=== PATIENT | female | born 1995 | race Hispanic/Latino ===

== ENCOUNTER 2023-08-24 00:25 | Emergency (ER) | payer OTHER, SELFPAY ==
[2023-08-24 00:28] VITALS: BP 145/95; BMI 28.4
[2023-08-24 01:05] LABS: COVID-19 Antigen Positive (Negative)
[2023-08-24 01:09] LABS: HCG, Serum Qualitative Screen Negative
[2023-08-24 01:12] LABS: Blood Urea Nitrogen 12 mg/dl (7-17); Calcium 9.3 mg/dl (8.4-10.2); Carbon Dioxide 26 mmol/L (22-30); Chloride 105 mmol/L (98-107); Estimated Creatinine Clearance > 125 ml/min; Glucose 103 mg/dl (70-99); Potassium 4.1 mmol/L (3.5-5.1); Sodium 136 mmol/L (135-145); eGFR > 60.00
[2023-08-24 01:13] LABS: % Basophils 0.5 % (0-2); % Eosinophils 0.7 % (0-6); % Immature Granulocytes 0.8 % (0-0.5); % Lymphocytes 20.4 % (20.5-51.1); % Monocytes 11.5 % (1.7-9.3); % Neutrophils 66.1 % (42.2-75.2); Absolute Eosinophils 0.1 10^3/uL (0-0.7); Absolute Immature Granulocytes 0.1 10^3/uL (0-0.05); Absolute Lymphocytes 1.7 10^3/uL (1.2-3.4); Absolute Neutrophils 5.6 10^3/uL (1.4-6.5); Hematocrit 38.2 % (37.0-47.0); Hemoglobin 12.8 g/dL (12.0-16.0); Mean Corp Hgb Conc. 33.5 g/dL (33.0-37.0); Mean Corpuscular Hgb 28.1 pg (27.0-31.0); Mean Corpuscular Volume 83.8 fL (81.0-99.0); Mean Platelet Volume 11.3 fL (7.4-10.4); Nucleated Red Blood Cells % 0 %; Platelet Count 306 10^3/uL (130-400); Red Blood Cell Count 4.56 10^6/uL (4.20-5.40); White Blood Cell Count 8.5 10^3/uL (4.8-10.8)
[2023-08-24 01:17] LABS: Alcohol None Detected
[2023-08-24 01:28] LABS: Amphetamines Negative (Negative); Barbiturates Negative (Negative); Benzodiazepines Negative (Negative); Buprenorphine Negative (Negative); Cocaine Negative (Negative); Marijuana Positive (Negative); Methadone Negative (Negative); Methamphetamines Negative (Negative); Opiates Negative (Negative); Phencyclidine Negative (Negative); Tricyclic Antidepressants Negative (Negative)
--- NOTE | 2023-08-24 02:24 | ED.GENMED ---
History of Present Illness
<JOELLE Che - Last Filed: 08/24/23 07:21>
General
Chief Complaint: Crisis Evaluation
Source: patient and records
Exam Limitations: clinical condition
Time Seen by Provider: 08/24/23 00:54
Nursing documentation reviewed up to this point in time: agreed with
Travel History
Have you had any contact with someone who has COVID-19?: No
Do you have any symptoms of coronavirus? Fever > 100 degrees, chills, cough, shortness of breath, sore throat, loss of taste or smell, muscle aches, or headache?: No
History of Present Illness
History of Present Illness:
This is a 28 year old female, with a PMH of bipolar and substance abuse, who presents to the ED for a crisis evaluation and 302. Pt's mother called the police on patient because she was allegedly 'locking her out of the house and being aggressive.'
Pt does not wish to comment on the situation. She states she has not used fentanyl in over a year and last used marijuana 6 days ago. She is currently going through recovery she states.
Past History
<JOELLE Che - Last Filed: 08/24/23 07:21>
Past History
ED Past Medical History: Psychiatric (PTSD, Bipolar, anxiety, substance abuse)
ED Past Surgical History: None
Social History
Tobacco: Non-smoker
Alcohol: None
Drug: Former user, Marijuana and Other (fentanyl)
Personal: Single
Living: with family
Employment: Not employed
Family History
Family History: Other (Noncontributory)
Review of Systems
<JOELLE Che - Last Filed: 08/24/23 07:21>
Review of Systems
Allergies reviewed?: Yes
Unable to obtain full review of systems at this time due to: other (psychiatric condition)
Phy Exam
<Margarita Medellin [facility] - Last Filed: 08/24/23 07:21>
General Physical Exam
General Presentation: no apparent distress
General age: appears stated age
General Skin: warm and dry
General Habitus: normal
General Mental: alert
General Hydration: appears well hydrated
ENT Exam
ENT Exam: neck supple, normocephalic, swallowing well and other (voice appears hoarse)
Cardiovascular Exam
Cardiovascular Exam: regular rate/rhythm, no edema, no murmur and normal peripheral pulses
Pulmonary Exam
Pulmonary Exam: lungs clear, no respiratory distress, no crackles, no wheezing and no cough
Gastrointestinal Exam
Gastrointestinal Exam: normal bowel sounds, non tender, soft and non distended
Neurological Exam
Neurological Exam: alert and oriented x3
Musculoskeletal Exam
Musculoskeletal Exam: full ROM and no edema
Skin Exam
Skin Exam: normal color and warm/dry
Course
<Margarita Medellin [facility] - Last Filed: 08/24/23 07:21>
Orders/Labs/Results
Orders:
Orders
08/24/23 00:39
Test Result ONCE
08/24/23 00:44
Alcohol Urgent
Basic Metabolic Panel Urgent
COVID-19 Antigen Urgent
Source: Nasal Swab
Complete Blood Count/With Diff Urgent
HCG, Serum Qualitative Screen Urgent
08/24/23 00:47
Urine Drug Abuse Screen Urgent
Date Specimen was Collected: 08/24/23
Time Specimen was Collected: 00:46
Abnormal Lab Results
08/24/23 08/24/23
00:44 00:47
RDW 15.0 H %
(11.5-14.5)
MPV 11.3 H fL
(7.4-10.4)
Abs Immat Gran (auto) 0.1 H 10^3/uL
(0-0.05)
Absolute Monos (auto) 1.0 H 10^3/uL
(0.1-0.6)
Immature Gran % 0.8 H %
(0-0.5)
Lymphocytes % 20.4 L %
(20.5-51.1)
Monocytes % 11.5 H %
(1.7-9.3)
Glucose 103 H mg/dl
(70-99)
U Marijuana (THC) Screen Positive H
(Negative)
SARS-CoV-2 Antigen Positive A
(Negative)
08/24/23 00:44
08/24/23 00:44
Vital Signs
Initial and Last Documented VS:
Initial Vital Signs
Temp Pulse Resp BP Pulse Ox
98.5 F 94 20 145/95 98
08/24/23 00:28 08/24/23 00:28 08/24/23 00:28 08/24/23 00:28 08/24/23 00:28
Last Documented Vital Signs
Temp Pulse Resp BP Pulse Ox
98.5 F 94 20 145/95 98
08/24/23 00:28 08/24/23 00:28 08/24/23 00:28 08/24/23 00:28 08/24/23 00:53
<Deidra Holbrook, DO - Last Filed: 08/24/23 07:23>
Orders/Labs/Results
Orders:
Orders
08/24/23 00:39
Test Result ONCE
08/24/23 00:44
Alcohol Urgent
Basic Metabolic Panel Urgent
COVID-19 Antigen Urgent
Source: Nasal Swab
Complete Blood Count/With Diff Urgent
HCG, Serum Qualitative Screen Urgent
08/24/23 00:47
Urine Drug Abuse Screen Urgent
Date Specimen was Collected: 08/24/23
Time Specimen was Collected: 00:46
Abnormal Lab Results
08/24/23 08/24/23
00:44 00:47
RDW 15.0 H %
(11.5-14.5)
MPV 11.3 H fL
(7.4-10.4)
Abs Immat Gran (auto) 0.1 H 10^3/uL
(0-0.05)
Absolute Monos (auto) 1.0 H 10^3/uL
(0.1-0.6)
Immature Gran % 0.8 H %
(0-0.5)
Lymphocytes % 20.4 L %
(20.5-51.1)
Monocytes % 11.5 H %
(1.7-9.3)
Glucose 103 H mg/dl
(70-99)
U Marijuana (THC) Screen Positive H
(Negative)
SARS-CoV-2 Antigen Positive A
(Negative)
08/24/23 00:44
08/24/23 00:44
Vital Signs
Initial and Last Documented VS:
Initial Vital Signs
Temp Pulse Resp BP Pulse Ox
98.5 F 94 20 145/95 98
08/24/23 00:28 08/24/23 00:28 08/24/23 00:28 08/24/23 00:28 08/24/23 00:28
Last Documented Vital Signs
Temp Pulse Resp BP Pulse Ox
98.5 F 94 20 145/95 98
08/24/23 00:28 08/24/23 00:28 08/24/23 00:28 08/24/23 00:28 08/24/23 00:53
<JOELLE Che - Last Filed: 08/24/23 07:21>
*Critical Care Note
Total Time (30-74mins, 75-104mins- exclusive of procedures): Not Applicable
<Deidra Holbrook DO - Last Filed: 08/24/23 07:23>
*Pulse Oximetry
Patient hypoxic: no
*Critical Care Note
Total Time (30-74mins, 75-104mins- exclusive of procedures): Not Applicable
ED Attending Note
<JOELLE Che - Last Filed: 08/24/23 07:21>
-
Portions of this chart may have been created with voice recognition software.� Occasional wrong word or��sound alike� substitutions may have occurred due to the inherent limitations of voice recognition software.
<Deidra Holbrook DO - Last Filed: 08/24/23 07:23>
ED Attending Note
Patient seen and examined by attending physician: Yes
I performed the substantive portion of visit, reviewed & personally made and approve the management plan that is documented in note by myself or JOSE ALBERTO.: Yes
I performed a history and physical exam of patient and discussed management with resident, I reviewed resident's note and agree with documented findings and plan of care.: Yes
ED Attending Note:
28-year-old woman with history of bipolar disorder, remote history of substance abuse however reports remaining sober for the past year. She is brought to the ED for involuntary psych evaluation. 302 petitioned by her mother with concern for
several day history of erratic behavior, verbal and physical threats to her parents and reported intentional overdose of gabapentin 1 to 2 days ago.
Patient adamantly denies overdose, denies suicidal thoughts or plan. She admits to somewhat adversarial relationship with her mother but denies threatening her.
She states her father had COVID URI 1 week ago. She herself is asymptomatic.
GENERAL: 28-year-old female appears her stated age, she is awake and alert, somewhat anxious and agitated, pacing about exam room. Somewhat boisterous, pressured speech, threatening to rosalee the hospital and stating these procedures are illegal. She
is however cooperative with myself and with nursing staff.
EYE: anicteric
NECK: Supple, nontender, no meningismus, no significant adenopathy.
ENT: oral mucosa is moist. No rhinorrhea.
CARDIAC: Regular rate and rhythm. no murmur.
LUNGS: Clear breath sounds bilaterally, no acute respiratory distress, no wheezes/rales/rhonchi
ABDOMEN: Soft, nondistended, without focal tenderness
NEUROLOGICAL: Alert and oriented x3, no focal neuro deficits. Gait is galo and steady.
SKIN: Warm and dry, normal color, skin intact. No rash.
MUSCULOSKELETAL: No C/C/E. peripheral pulses are full and equal b/l. No palpable tenderness.
PSYCH: Somewhat agitated, exhibiting pressured speech, mildly scattered thought processes. Denies suicidal thoughts or plan. Denies drug or alcohol use however does admit to marijuana use 1 week ago.
Overall patient appears somewhat manic in nature.
She has been evaluated by telepsychiatrist who recommends upholding 302.
Patient, is not happy with this decision but overall remains cooperative.
Routine labs are unremarkable however COVID-19 screening is positive.
EtOH is negative. UDS is positive for THC, consistent with patient's history.
Will consult psychiatry and continue observation in the ED.
Discharge Plan
Departure
Patient Disposition: Psych Facility
Date of Disposition: 08/24/23
Time of Disposition: 07:22
Patient with high blood pressure during this ER visit?: No
Condition: Good
Discharge Problem:
Involuntary commitment, bipolar disorder with acute jaclyn, covid-19 Ag (+)
Prescriptions:
No Action
olanzapine [Zyprexa] 10 mg Tablet
50 mg PO DAILY
trazodone 150 mg Tablet
150 mg PO HS
naloxone [Narcan] 4 mg/actuation spray,non-aerosol
4 mg intranasal DIRECTED Qty: 2 0RF
Referrals:
UNKNOWN - PT NOT,INTERVIEWE [Family Provider] -
Interventions
Interventions:
*Risk Screen - Suicide Last Done: 08/24/23 00:28
*General Assessment Last Done: 08/24/23 00:28
*Neglect/Abuse Screening Last Done: 08/24/23 00:28
ED- Fall Risk Assessment Last Done: 08/24/23 00:53
*ED COVID-19 Vaccine History Last Done: 08/24/23 00:28
ED-Psychological Assessment Last Done: 08/24/23 00:53
--- NOTE | 2023-08-24 07:32 | EDRN ---
mental health airport security screener ordered the pts breakfast
--- NOTE | 2023-08-24 10:06 | CON.MD ---
Consultation - Medical
-
28 y/o single woman brought to ED due to manic behavior and locking her mother out of her home. On 302 from telehealth. Has not been sleeping. Is under psychiatric care (Dr. Dove?) and sees a psychologist, Dr. Desi Faulkner. is apparently
treated with Trileptal, but unable to give clear history. 'Home medications' indicate trazodone 150 mg. and Zyprexa 50 mg. which is an extremely high (and likely inaccurate) dose. She smokes marijuana and her UDS is positive for cannabis, but no
other drugs. Denies alcohol use. Past abuse of opioids. Pt. is in a manic state and therefore a poor historian.
Her father has COVID now, pt. tested positive in ED for SARS-CoV-2 but is asymptomatic. Does have hoarse voice which she attributes to talking to a man excessively.
She is very concerned about not being able to sleep and wants something to stabilize her mood. Refuses Zyprexa; asking for Klonopin. I told her i would give Klonopin if she would also take Saphris.
Has apparently had past psychiatric hospitalizations.
Is on disability; does not work. Lives with parents. Denies medical problems.
MSE: Thin, youthful appearing woman with some facial hair who greeted me at her door (not wearing a mask). Animated with psychomotor excitation. Speech is clearly articulated, abundant but not pressured. Mood is elevated and affect reflects that
inappropriate mood. Not irritable or threatening. Denies current suicidal ideation; has had in the remote past. Denies hallucinations. Some romantic preoccupation with a man. Poor insight and judgment. Wants to go home and impatient to leave
the hospital.
BP 145/95, P 94, RR 20, T98.5, O2 Sat 98%.
LABS: UDS + cannabis; SARS-Co-V2 +
Hgb 12.8; Lytes WNL, WBC 8.5
Diagnosis: Bipolar I Disorder, Manic
history of opioid abuse
Plan: Give Saphris 5 mg. SL now and Q HS; give Klonopin 1 mg. BID + 1 mg. Q6H PRN. Case discussed with nurse and crisis workers. Could increase either or both medications if needed.
Continue on 302. Bed search will be difficult until she tests negative for Covid.
[2023-08-24] MEDS: SAPHRIS 5 MG SL ×3 (10:23→22:09)
[2023-08-24 12:15] VITALS: BP 141/91
--- NOTE | 2023-08-24 12:20 | EDRN ---
Pt requested apple sauce and brought 2 containers and a spoon. Security said pt received her breakfast (though a lot of it was all over table and floor) and lunch has been ordered. Pt was informed.
--- NOTE | 2023-08-24 13:13 | EDRN ---
Crisis called for update. Pt has been declined by all attempts at placement for her r/t + COVID diagnosis.
--- NOTE | 2023-08-24 17:48 | EDRN ---
Security said Crisis was in martha 16:30 and pt was slightly anxious and all over. THis RN just noticed an order for Sapphris written at 16:36 that was administered at this time. At 17:30 this RN was in room to check on pt and she was lying down on
stretcher calmly. When I entered to give Sapphris just now pt was pacing around the room and very anxious and talking alot. Pt had ripped and tied up her paper scrubs in a strange fashion as well.
--- NOTE | 2023-08-24 18:13 | EDRN ---
Pt is calmer at this time. Pt is on stretcher talking and seems to be carrying on a conversation w/ someone not present in room at this time. Pt is calmer and not pacing or having high activity all over the room. Supper tray still untouched.
[2023-08-24 19:00] VITALS: BP 115/72
[2023-08-24 19:02] VITALS: BMI 28.3
[2023-08-24] MEDS: KLONOPIN 1 MG PO (20:00)
[2023-08-25] MEDS: KLONOPIN 1 MG PO ×3 (07:43→20:27)
[2023-08-25] MEDS: SAPHRIS 5 MG SL (07:45)
--- NOTE | 2023-08-25 13:00 | W.PN.UPDATE ---
Update Note
Progress Note Update
Pt seen, reviewed record, 302 and tele-psych eval. Pt brought in for alleged aggressiveness, jaclyn. Pt has been calm, cooperative, taking medications ordered Klonopin and Saphris. Pt mildly evasive and tangential, but answered most questions,
complained about relationship with her parents, stated they restrict her choices, c/o that her brother could do no wrong/was given more freedom. Pt reportts she takes Trileptal for mood stabilization, dose not confirmed. No agitation or
threatening behavior; pt pleasant. No overt delusions or hallucinations during interview. Pt denies any suicidal or homicidal ideation. Pt declines inpatient treatment, states she will continue with her outpatient providers- go to therapy and
take medications.
Imp: Bipolar d/o, hypomanic, improving on Saphris and Klonopin
Hx of opioid use, cannabis use
Covid positive
Rec: will continue to observe on 302; thus far pt does not present grounds for a 303 commitment. Will continue to adjust medication, resume Trileptal for mood-stabilization
Will continue effort to place on 302, although facilities are denying due to Covid + status. If progress continues, will likely stabilize in the next 2 to 3 days
Will follow
--- NOTE | 2023-08-25 13:45 | EDRN ---
This RN went into the Crisis room because this RN could hear the patients yelling at each other. Patient yelling racial slurs at the patient in C2. Patient stated 'I am going to come over there and beat her up if she does not shut the fuck up. She's
a Niggar (spelled out by the patient). And the 2 of you (pointing to this RN and security) must hate white people since you are listening to her side and not mine.' Patient over talking this RN and security prior to making the statement when asking
her and the patient in C2 what happened. Explained to patient that she can not make any racial slurs towards anyone and this RN was listening to her side of the story but she kept over talking this RN. Patient stated 'Give me my Klonopin and get the
fuck away from me and don't speak to me again.'
--- NOTE | 2023-08-25 15:01 | EDRN ---
Addendum entered by Rosario Cardona RN 08/25/23 17:07:
Patient speaking to her mother.
Original Note:
Patient on the phone screaming at her and demanding that she come pick her up immediately. Patient verbally threatening to her mother on the phone. [place] text sent to .
[2023-08-25] MEDS: SAPHRIS SL ×2 (20:27→20:33)
[2023-08-25 20:33] VITALS: BP 120/81
--- NOTE | 2023-08-26 01:48 | ED.CRISIS ---
ED Crisis Note
ED Crisis Note
Subjective:
The patient acutely became agitated and began yelling out. Security asked her to go back in her room and she lashed out. Patient was then put in her bed and tried kicking security. Calling lead security officer in names.
Objective:
Awake and alert but severely agitated and combative
Assessment/Plan:
IM Haldol, IM lorazepam. Restraints for now for patient and staff protection
[2023-08-26] MEDS: HALDOL 5 MG IM (01:51)
[2023-08-26] MEDS: ATIVAN 2 MG IM (01:52)
--- NOTE | 2023-08-26 02:09 | EDRN ---
Assumed care of pt. @ 0207, pt. is in 4-point velcro. restraints r/t prior outbursts of aggressive behavior against staff. Pt. was reportedly spitting at security and yelling racial threatening slurs at staff. Pt. was medicated w/ IM medications per
MD orders. Security remains at bedside as 1-1.
--- NOTE | 2023-08-26 02:29 | EDRN ---
RN to rm. to re-evaluate pt.'s behavior post-restraints and medication, pt. no longer yelling out; however when RN explained restraint release criteria, pt. remains aggressive, stating, 'no, it's you guys who are going to cooperate with me!'. Pt. to
remain in restraints until able to demonstrate safe behavior.
[2023-08-26] MEDS: KLONOPIN 1 MG PO ×3 (03:17→20:33)
--- NOTE | 2023-08-26 06:40 | EDRN ---
Pt. was incontinent of stool, RN awoke pt. from sleep to offer incontinence care. Pt. was cooperative and appreciative, walked to restroom w/ RN, was provided soap/water/warm towels and washed herself. Pt. provided fresh linens and scrubs, returned
to stretcher without difficulty. Security now assisting pt. w/ breakfast order.
[2023-08-26 09:10] VITALS: BP 101/84
[2023-08-26] MEDS: SAPHRIS SL ×3 (09:16→20:33)
[2023-08-26] MEDS: KLONOPIN PO (09:16)
--- NOTE | 2023-08-26 11:01 | ED.CRISIS ---
ED Crisis Note
ED Crisis Note
Assessment/Plan:
I spoke to crisis. 303 has been approved. May be delay with getting patient placed as patient is positive for COVID.
--- NOTE | 2023-08-26 13:38 | W.PN.UPDATE ---
Update Note
Progress Note Update
Pt escalated yesterday afternoon, became aggressive/verbally threatening, yelling/cursing. Pt noted/observed threatening her mother on the phone, was threatening and using racial slurs against the pt in the next room. Pt refused HS and AM Saphris.
She was severely agitated overnight/ was given Haldol 5 mg and Ativan 2 mg IM approx 1:50 am. This morning, pt is irritable, cursing, denying need to inpatient treatment. 303 MH hearing held with [address]in [address]; pt stipulated to up to 14 days
of inpatient treatment.
Imp: Bipolar d/o, manic, now on 303 for up to 14 days inpatient
Rec: referral to inpatient psych on 303, will need to repeat Covid test in hopes of negative result
Will follow
[2023-08-26 18:00] VITALS: BP 132/78
[2023-08-26 20:34] VITALS: BP 129/79
[2023-08-27] MEDS: KLONOPIN 1 MG PO (08:49)
[2023-08-27 08:51] VITALS: BP 118/70
[2023-08-27] MEDS: SAPHRIS SL (08:51)
[2023-08-27 10:00] LABS: COVID-19 Antigen Negative (Negative)
== END 2023-08-27 15:41 ==
LOC: EMR 00:25
PROVIDERS: Emergency Medicine; CONSULT PHYSICIAN Psychiatry & Neurology Psychiatry; EMERGENCY PHYSICIAN Emergency Medicine; OTHER PHYSICIAN Psychiatry & Neurology Psychiatry
DX: F31.9 Bipolar disorder, unspecified (principal); U07.1 COVID-19; F43.10 Post-traumatic stress disorder, unspecified; F19.10 Other psychoactive substance abuse, uncomplicated
CPT/HCPCS: 80048; 80306; 82077; 84703; 85025; 87811; 99285